=== PATIENT | female | born 1975 | race Two or more races ===

== ENCOUNTER 2022-12-12 13:44 | Emergency (ER) | payer OTHER ==
[2022-12-12 15:10] LABS: #Eosinphils 0.1 10x3/uL (0.0-0.5); #Neutrophils 11.3 10x3/uL (1.5-8.4); %Basophils 0.2 % (0.0-2.0); %Eosinophils 0.7 % (0.0-6.0); %Lymphocytes 22.9 % (18.0-47.0); %Monocytes 6.1 % (0.0-10.0); %Neutrophils 69.8 % (40.0-75.0); Hemoglobin 14.5 g/dL (12.0-15.5); Mean Corpuscular HGB CONC 34.4 g/dL (32.0-36.0); Mean Corpuscular Hemoglobin 30.2 pg (27.0-33.0); Mean Corpuscular Volume 87.9 fl (81.6-98.3); Mean Platelet Volume 10.4 fl (7.4-10.4); Platelet Count 256 10x3/uL (150-450); RBC Distribution Width 14.1 % (11.5-14.5); White Blood Cell (WBC) Count 16.1 10x3/uL (3.5-10.5)
[2022-12-12 15:22] LABS: ALT (SGPT) 27 U/L (8-55); AST (SGOT) 16 U/L (5-34); Albumin 4.4 g/dL (3.5-5.0); Alkaline Phosphatase 105 U/L (40-110); Anion Gap 13 mmol/L (10-20); BUN (Urea Nitrogen) 25 mg/dL (7.0-18.7); Bilirubin, Total 0.2 mg/dL (0.2-1.2); Calc. Creatinine Clearance 0 mL/min (70-130); Calcium 9.5 mg/dL (7.8-10.44); Carbon Dioxide 25 mmol/L (22-29); Chloride 106 mmol/L (98-107); Estimated GFR 69; Globulin 2.7 g/dL (2.4-3.5); Glucose 101 mg/dL (70-105); Lipase 17 U/L (8-78); Potassium 3.9 mmol/L (3.5-5.1); Protein, Total 7.1 g/dL (6.0-8.3); Sodium 140 mmol/L (136-145)
[2022-12-12] MEDS ORDERED: Morphine 4 MG/ML VIAL ONE (16:43)
[2022-12-12] MEDS ORDERED: Ondansetron PF 4 MG/2 ML Vial ONE (16:44)
[2022-12-12] MEDS ORDERED: Ketorolac Tromethamine 30 MG/ML VIAL ONE (18:07)
[2022-12-12] MEDS ORDERED: Dicyclomine 20 MG/2 ML VIAL ONE (18:52)
== END 2022-12-12 19:00 | disposition home or self-care (01) ==
LOC: CSHERS 13:44
DX: R07.9 Chest pain, unspecified (principal); K62.5 Hemorrhage of anus and rectum; I10 Essential (primary) hypertension; E78.5 Hyperlipidemia, unspecified; F17.210 Nicotine dependence, cigarettes, uncomplicated
CPT/HCPCS: 36415; 71045; 74176; 80053; 83690; 84484; 85025; 93005; 96374; 96375; J1885; J2270; J2405